=== PATIENT | female | born 1955 | race Caucasian/White ===

== ENCOUNTER 2023-12-29 13:00 | Outpatient (RCR) | payer MEDICARE, SELFPAY | END 2024-01-26 15:42 | disposition home or self-care (01) | PROVIDERS: PCP Family Medicine; Visit Provider Family Medicine | DX: M17.11 Unilateral primary osteoarthritis, right knee (principal); M79.651 Pain in right thigh; Z51.89 Encounter for other specified aftercare | CPT/HCPCS: 97110; 97140; 97161 ==

== ENCOUNTER 2024-04-25 14:25 | Outpatient (CLI) | payer MEDICARE, SELFPAY | END 2024-04-25 14:26 | disposition home or self-care (01) | LOC: INJ CL 14:25 | PROVIDERS: PCP Family Medicine; Visit Provider Family Medicine | DX: M17.11 Unilateral primary osteoarthritis, right knee (principal); M25.561 Pain in right knee | CPT/HCPCS: 64454 ==

== ENCOUNTER 2024-09-13 14:00 | Outpatient (RCR) | payer MEDICARE, SELFPAY | END 2024-10-24 12:41 | disposition home or self-care (01) | PROVIDERS: PCP Family Medicine; Visit Provider Family Medicine | DX: M17.11 Unilateral primary osteoarthritis, right knee (principal); M21.161 Varus deformity, not elsewhere classified, right knee; M79.651 Pain in right thigh; Z51.89 Encounter for other specified aftercare | CPT/HCPCS: 97110; 97140; 97161 ==

== ENCOUNTER 2025-03-07 17:40 | Emergency (ER) | payer MEDICARE, SELFPAY ==
[2025-03-07] VITALS (11 sets, daily range): BP systolic 80–129; BP diastolic 46–78; PULSE 82–88; RESP 18; TEMP 36.6; O2SAT 80–97
--- OUTSIDE RECORDS SUMMARY | 2025-03-07 17:44 | XMS_ITS | Clinical Summary ---
Author Organization [employer] [facility] Address [address] [place] [address] Care Team Providers Care Agricultural Researcher Name Role Phone Trinity Belcher MD Primary Care Prov ider Snow Garcia Unavailable [phone] Formerly [facility] Unavailable [phone] Unavailable [phone] Allergies Active Allergy Reactions Criticality Noted Date Comments Amoxicillin Hives High 09/29/2018 Other reaction(s): Rash Cefazolin Angioedema 10/03/2012 Codeine GI Upset,Vomiting 02/04/2007 Medications polyethylene glycoL (MIRALAX) 17 gram/dose powderIndications: Abdominal pain, unspecified site Take 17 g by mouth once daily if needed for Constipation. 3 jar 4 04/10/20 14 Active sennosides (SENNA) 8.6 mg tablet Take 8.6 mg by mouth once daily if needed. Active cycloSPORINE (RESTASIS) 0.05 % ophthalmic emulsion Place 1 Drop into both eyes 2 times daily. Active aspirin (ECOTRIN) 81 mg enteric coated tabletIndications: Coronary artery disease involving manchester coronary artery without angina pectoris, unspecified whether manchester or transplanted heart Take 1 Tablet (81 mg) by mouth once daily with a meal. 02/11/20 24 Active continuous glucose monitor SENSOR KIT (FreeStyle [place] 14 Day Sensor)Indications :Controlled type 2 diabetes mellitus with retinopathy, with long-term current use of insulin, macular edema presence unspecified, unspecified laterality, unspecified retinopathy severity (HC) As directed. 6 Each 06/06/19 25 Active rosuvastatin (CRESTOR) 10 mg tabletIndications: Mixed hyperlipidemia Take 1 Tablet (10 mg) by mouth at bedtime. 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 300 Each 12/15/19 25 Active pantoprazole (PROTONIX) 20 mg tabletIndications: Gastroesophageal reflux disease without esophagitis Take 1 Tablet (20 mg) by mouth once daily. 90 Tablet 12/15/19 25 Active nitroglycerin 0.4 mg sublingual tabletIndications: NSTEMI (non-ST elevated myocardial infarction) (HC) Place 1 Tablet (0.4 mg) under the tongue every 5 minutes if needed for Chest Pain. Evaluation if need to take medication. 25 Tablet 12/15/19 25 Active metoclopramide (REGLAN) 5 mg tabletIndications: Gastroparesis,Abdo swapna pain, unspecified abdominal location Take 1 Tablet (5 mg) by mouth 4 times daily if needed for Nausea/Vomiting. 120 Tablet 12/15/19 25 Active Lantus Solostar U-100 Insulin 100 unit/mL (3 mL) penIndications:Con trolled type 2 diabetes mellitus with retinopathy, with long-term current use of insulin, macular edema presence unspecified, unspecified laterality, unspecified retinopathy severity (HC) Inject 16-18 units subcutaneous two times daily. Product desired: LANTUS SOLOSTAR 11 Each 12/15/19 25 Active insulin aspart (U-100) (NovoLOG Flexpen U-100 Insulin) 100 unit/mL (3 mL) penIndications:Con trolled type 2 diabetes mellitus with retinopathy, with long-term current use of insulin, macular edema presence unspecified, unspecified laterality, unspecified retinopathy severity (HC) Inject 6-8 units subcutaneous three times daily before meals. DO NOT TAKE UNTIL YOUR SUGARS ARE CONSISTENTLY HIGHER THAT 120 8 Each 12/15/19 25 Active clopidogreL (PLAVIX) 75 mg tabletIndications: Arteriosclerotic heart disease (ASHD) Take 1 Tablet (75 mg) by mouth once daily. Take for 1 year minimum 90 Tablet 3 12/15/19 25 Active furosemide (LASIX) 20 mg tabletIndications: Chronic HFrEF (heart failure with reduced ejection fraction) (HC) Take 1 Tablet (20 mg) by mouth once daily in the morning, as directed to by cardiology. 30 Tablet 12/16/19 25 Active empagliflozin (JARDIANCE) 10 mg tabletIndications: Controlled type 2 diabetes mellitus with stage 3 chronic kidney disease, with long-term current use of insulin (HC) Take 1 Tablet (10 mg) by mouth once daily. 90 Tablet 3 12/16/19 25 Active sacubitril-valsart an (ENTRESTO 24 MG-26 MG TABLET) 24-26 mg tabletIndications: Systolic congestive heart failure, unspecified HF chronicity (HC) Take 1 Tablet by mouth two times daily. 180 Tablet 3 12/16/19 25 Active metoprolol succinate (Toprol XL) 50 mg sustained-release tabletIndications: Coronary artery disease involving manchester coronary artery without angina pectoris, unspecified whether manchester or transplanted heart Take 0.5 Tablets (25 mg) by mouth once daily. 45 Tablet 3 12/16/19 25 Active CPAPIndications:Ob structive sleep apnea RESMED CPAP (E0601) machine for home use at pressure: 10 cmw, Choice of mask (A7030 or A7034) w/full face cushion (A7031) x1/mo, nasal cushion (A7032) x2/mo, or nasal pillows (A7033) x 2/mo; Length of Need: 99 months; Frequency of use: Daily 1 Each 12/19/19 25 Active ammonium lactate 12 % creamIndications:D ry skin APPLY TOPICALLY TO AFFECTED AREA(S) twice daily as needed FOR DRY SKIN HOLD until patient calls 385 g 12/19/19 25 Active Active Problems Problem Noted Date Diagnosed Date Stable proliferative diabeti c retinopathy of both eyes associated with type 2 diabetes mellitus 06/29/2024 Heart failure with reduced ejection fraction 02/2025 Exudative age-related macula r degeneration, right eye, with active choroidal neovascularization 06/06/2024 Systolic congestive heart fa ilure, unspecified HF chronicity 06/06/2024 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) 03/29/2024 Ischemic cardiomyopathy 03/29/2024 Controlled type 2 diabetes m bronwyn with retinopathy, with long-term current use of insulin 12/09/2023 Ascending aortic aneurysm 12/09/2023 Controlled type 2 diabetes m bronwyn with stage 4 chronic kidney disease, with long-term current use of insulin 12/09/2023 Partial nontraumatic amputation of left foot Obesity, morbid 07/22/2021 Proliferative diabetic retin opathy of both eyes associated with type 2 diabetes mellitus 06/11/2019 CKD (chronic kidney disease) stage 4, GFR 15-29 ml/min 12/07/2018 Anemia in stage 4 chronic kidney disease 019 H/O hand surgery 10/26/2018 Gout 10/13/2018 Cellulitis of left thumb 10/12/2018 Infection of thumb 09/20/2018 Screening for osteoporosis 02/16/2016 Overview (02/16/2016): 01/2016 normal repeat 5- 7 yrs Gastroparesis 09/05/2012 Abdominal pain 09/01/2012 CAD (coronary artery disease) 03/20/2012 Overview (03/20/2012): - 03/16/12 Cor CTA: occluded mid LAD, prominent plaque burden - med management of NSTEMI ACP (advance care planning) 03/16/2012 Overview (03/16/2012): Patient has identified Health Care Agent(s): No Add Health Care Agents: No Patient has Advance Care Plan Documents (Health Care Directive, POLST): No, referral made to Social Work Services. Patient has identified Specific Treatment Preferences: No Specific limits to treatment preferences NOT identified: ASSUME FULL TREATMENT. NSTEMI (non-ST elevated myocardial infarction) 1 Pupil asymmetry 02/16/2012 Overview (02/16/2012): Right 3 mm 1-2 on left Arthritis 04/21/2011 Overview (04/21/2011): Mainly involving her hands and shoulders Charcot ankle 03/26/2011 Anemia, unspecified 10/28/2010 BHUPINDER 07/25/2010 AHI- 36, positional 08/01/2010 T12-L1 Extruded Disk Herniation 07/10/2010 Degeneration of lumbar or lumbosacral interverte bral disc 07/10/2010 Abdominal pain, epigastric 07/07/2010 Overview (07/07/2010): EGD 06/2010 Reactive gastropathy Unspecified essential hypertension 02/04/2007 Rash and other nonspecific skin eruption 007 Mixed hyperlipidemia 02/04/2007 DIABETES 04/06/2002 Resolved Problems Problem Noted Date Diagnosed Date Resolved Date Osteomyelitis of finger 10/13/201803/18 Renal insufficiency 03/07/2012 12/08/19 19 Unspecified sleep apnea 10/10/2010 03/0 07/2020 Overview (10/10/2010): Using CPAP Contraceptive surveillance, unspecified 02/04/2007 03/07/2012 Encounters Date Type Department Care Team Description 03/07/2025 Travel 03/06/2025 Telephone [facility] [address] [facility] [address] [place] [phone] Patricia Michaels RN Device Check (Programming adjustment.) 03/05/2025 11:30 AM CDT Telemedicine [facility] [address] [place] [address] Snow Garcia PA Telehealth (No vitals taken); Weight (MWL follow up) 02/28/2025 Travel 02/27/2025 Travel 02/23/2025 Telephone [facility] [address] [facility] [address] [place] [phone] Teresa Bowman PA Surgery Scheduled (BOOK AND PAPERS ) 02/22/2025 2:10 PM CDT Ancillary Procedure [facility] [address] [facility] [address] [place] [phone] 02/22/2025 1:50 PM CDT Office Visit [facility] - [facility] [address] [place] [address] Teresa Bowman PA 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) 02/22/2025 Transcribe Orders [facility] [address] [place] [address] Nestor Cramer MD 02/22/2025 Patient Outreach [facility] [address] [place] [address] Anamaria Woodward, toe closing machine tender Nurse Navigator (Assessment/RAPT/1 on education) 02/22/2025 Travel 02/21/2025 Travel 02/14/2025 10:30 AM CDT Office Visit [facility] [address] [facility] [address] [place] [address] Kathia Freeman, DILCIA Follow Up (6 week follow up / labs prior PT states feeling not too bad, no cardiac symptoms today. She wants to talk about getting her knee replacement. ) 02/14/2025 Travel 02/09/2025 Travel 02/07/2025 9:30 AM CDT Orders Only [facility] [address] [place] [address] Lab, [place] Lab 02/07/2025 Travel 02/02/2025 Travel 01/25/2025 10:20 AM CDT Office Visit [facility] [address] [place] [address] Severiano Ivan MD Musculoskeletal Problem (Right knee) 01/25/2025 Travel 01/20/2025 Travel 12/29/2024 Telephone [facility] [address] [place] [address] [facility] General Medicine Referral 12/28/2024 Orders Only [facility] [address] [place] [address] Trinity Belcher MD <No scans attached> 12/25/2024 1:00 PM CDT Orders Only [facility] [address] [facility] [place] [address] Lab, [place] [facility] 12/25/2024 Travel 12/20/2024 Travel 12/18/2024 9:00 AM CDT Office Visit [facility] [address] [place] [address] Dustin Malagon MD Sleep Follow-up 12/18/2024 Telephone [facility] [address] [place] [address] Kathia Freeman, COAL BRIQUETTE MACHINE OPERATOR Follow Up 12/18/2024 Telephone [facility] [address] [place] [address] Trinity Belcher MD Medication Management 12/18/2024 Travel 12/16/2024 Travel 12/15/2024 2:30 PM CDT Office Visit [facility] [address] [place] [address] Kathia Freeman, COAL BRIQUETTE MACHINE OPERATOR Follow Up (3 month F/U, labs 12/13. Pt states feeling ok, she has noticed a lot of fluid retention and weight gain. Some swelling in fingers but not really her lower extremities. pacer implanted 11/29 and has felt fine. No recent or current cardiac symptoms ) 12/15/2024 Travel 12/14/2024 9:00 AM CDT Office Visit [facility] [address] [facility] [place] [address] Trinity Belcher MD Medicare ANNUAL (subsequent) Visit (69 yo female); Serious Illness Conversation 12/14/2024 Refill [facility] [address] [place] [address] Trinity Belcher MD Refill Request (AMMONIUM LAC CRE) 12/13/2024 10:15 AM CDT Orders Only [facility] [address] [place] [address] Lab, [place] Lab 12/13/2024 Orders Only [facility] Scanner 1 scan: (1-Ord) [facility], MULTIPLE LAB RESULTS, 12/13/2024 12/13/2024 Orders Only [facility] Scanner 1 scan: (1-Ord) [facility] , MULTIPLE LABS, 12/13/2024 12/13/2024 Orders Only [facility] Scanner 1 scan: (1-Ord) [facility], MULTIPLE LABS, 12/13/2024 12/13/2024 Travel 12/13/2024 Telephone [facility] [address] [facility] [address] Trinity Belcher MD Lab 12/11/2024 11:00 AM CDT Patient Outreach [address] [address] Telehealth (DM education- follow up) 12/10/2024 Travel 12/09/2024 Travel 12/08/2024 Telephone [facility] [address] [facility] [place] [address] Trinity Belcher MD DME Supply (Address patients diabetes and complications feet. ) 12/08/2024 Telephone [facility] [address] [facility] [address] [place] [address] Kathia Freeman, COAL BRIQUETTE MACHINE OPERATOR Lab (Pro-BNP add on to labs drawn 12/07) 12/07/2024 11:00 AM CDT Orders Only [facility] [address] [facility] [address] Lab[place] <No scans attached> 12/06/2024 9:30 AM CDT Office Visit [facility] Alex [facility] [place] [address] Trinity Belcher MD Hospital F/U 12/06/2024 Travel 12/05/2024 1:30 PM CDT Telemedicine [address] [phone] Snow Garica PA Telehealth (No vitals taken); Weight (MWL follow up) from Last 3 Months Immunizations Immunization Administration Dates Next Due AMB Influenza, IIV3 (Age >=3 years)(Flu Clinic Only) 03/06/2010,03/15/2008 AMB Influenza, IIV4 PF (=>6 mos Flulaval,Fluzone Fluarix)(Flu Clinic Only) 02/26/2014 COVID-19 vaccine (Moderna 100mcg/0.5mL) PF, MDV 09/11/2021,03/19/2021,09/12/2020,08/15 Hepatitis B (Adult) 04/10/2014,2013,2013 Influenza A (H1N1), Inactivated 06/03/2009 Influenza A (H1N1), Inactiva dalia (Age >=3 Years) 06/03/2009 Influenza, High-dose Inactivated 01/18/2025,01/16 Influenza, High-dose Quadriv alent Inactivated 02/02/2023,02/17/2022,01/31/2021 Influenza, IIV3 (Age 6-35 mos) 02/17/2011 Influenza, IIV3 (Age >=3 years) 02/21/20 13,02/16/2012,02/17/2011,03/06,01/28/2009,03/15/2008,03/08/2007 ,03/18/2006,03/11/2005,02/26/2004,02/15 Influenza, IIV4 01/25/2020, 8,02/17/2017,01/27,02/26/2014 Influenza, IIV4 (=>6mos) MDV 02/08/2019 Pneumococcal Poly,23-Valent (Pneumovax) 02/17/2022,12/12/1996 Pneumococcal conj 13-Valent (Prevnar 13) 01/31/2021 RSV, Recombinant ADJ Reconst ituted (Arexvy 120MCG/0.5mL) 02/02/2023 Td (Age >=7 Years) 02/10/2005 Td, Preservative Free (age >= 7 Years) 5 Tdap 04/27/2024,04/10/2014 Zoster (Shingrix-RZV, recombinant) 11/22/2018, Zoster (Zostavax-ZVL, live) 10/22/2016 Family History Medical History Relation Name Comments Diabetes Brother 4 Unknown Brother 5 Unknown Brother 6 Good Health Daughter 2 Heart Disease Father CHF?? Hypertension Father Arthritis Mother Diabetes Mother Other Sister 2 hypoglycemic Psychiatric illness Son 3 autism Psychiatric illness Son 4 ADHD Cancer-breast No Family History Relation Name Status Comments Brother 1 Alive Brother 2 Alive Brother 3 Alive Brother 4 Brother 5 Brother 6 Daughter 1 Other Daughter 2 Father Mother Sister 1 Alive Sister 2 Son 1 Alive Son 2 Alive Son 3 Son 4 Social History Tobacco Use Types Packs/Day Years Used Date Smoking Tobacco: Never Passive Smoke Exposure: Never Smokeless Tobacco: Never Tobacco Cessation:Counseling Given: Yes Alcohol Use Standard Drinks/Week Comments No 0 (1 standard drink = 0.6 oz pur e alcohol) PHQ-2 Answer Date Recorded PHQ-2 TOTAL SCORE 0 12/14/2024 Social Connections Answer Date Recorded Do you often feel lonely or isolated from those around you? 0 11/29/2024 Alcohol Use Answer Date Recorded How often do you have a drink containing alcohol ? 0 03/05/2025 How many drinks containing a lcohol do you have on a typical day when you are drinking? 0 03/05/2025 How often do you have five or more drinks on one occasion? 0 03/05/2025 Financial Resource Strain Answer Date R ecorded Difficulty of Paying Living Expenses 3 12/09/2023 Difficulty of Paying Living Expenses Not on file 12/09/2023 Food Insecurity Answer Date Recorded Do you worry your food will run out before you are able to buy more? 1 11/29/2024 Transportation Needs Answer Date Record ed Does lack of transportation keep you from medica l appointments? 1 11/29/2024 Does lack of transportation keep you from work, meetings or getting things that you need? 1 11/29/2024 Housing Stability Answer Date Recorded What is your housing situation today? 1 11/29/2024 Interpersonal Safety Answer Date Record ed Are you being hit, kicked, p ushed or yelled at (see row info)? No 11/29/2024 Interpersonal Safety Abuse 12 - 18 Not on file 11/29/2024 Interpersonal Safety Ambulatory Vulnerability No t on file 11/29/2024 Utilities Answer Date Recorded Do you have trouble paying f or utilities (for example, heat, electricity, water, phone)? 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 Not on file Not on file Not on file Obstetrics History Para Term AB IAB SAB Ectopic Multiple Livin g Live Births 7 3 3 4 4 1 3 Date Outcome GA Total Labor Labor/2nd/3rd Weight Sex Type Anes PTL Verna A1 A5 Name Clin Term Term Term SAB SAB SAB SAB Last Filed Vital Signs Vital Sign Reading Time Taken Comments Blood Pressure 105/62 02/14/2025 10:32 AM CDT Pulse 78 02/14/2025 10:32 AM CDT Temperature 36.7 C (98 F) 12/01/2024 8:30 AM CDT Respiratory Rate 16 12/01/2024 8:30 AM CDT Oxygen Saturation 100% 02/14/2025 10:32 AM CDT Inhaled Oxygen Concentration - - Weight 91.2 kg (201 lb) 03/05/2025 11:00 AM CDT Height 157.5 cm (5' 2.01) 03/05/2025 11:00 AM C DT Body Mass Index 36.75 03/05/2025 11:00 AM CDT Plan of Treatment Upcoming Encounters Date Type Department Care Team (Late st Contact Info) Description 03/08/2025 Cardiac Device Check [facility] [phone] 03/12/2025 11:00 AM CDT Patient Outreach [address] [address] Sofi Ho, RD [address] [place] [phone] 03/20/2025 2:00 PM ERGONOMIST Ancillary Procedure [facility] [address] [place] [address] 03/22/2025 10:30 AM ERGONOMIST Telemedicine [facility] [place] [facility] [place] [address] [place] [address] Greg Go, ARTURO [address] [facility] [address] [place] [address] 03/29/2025 2:20 PM ERGONOMIST Procedure Only [facility] - [facility] [place] [address] [facility] [address] [place] [address] Teresa Bowman PA [address] [facility] [address] [place] [address] 04/18/2025 9:30 AM ERGONOMIST Office Visit [facility] [address] [place] [address] Trinity Belcher MD [address] [place] [address] 04/24/2025 10:30 AM ERGONOMIST Cardiac Device Check [facility] [place] [facility] [address] [place] [address] 05/09/2025 10:10 AM ERGONOMIST Hospital Encounter [facility] [address] [place] [address] Nestor Cramer MD [address] [facility] [address] [place] [address] 05/09/2025 10:10 AM ERGONOMIST - 05/09/2025 12:15 PM ERGONOMIST Surgery [facility] [address] [facility] [place] [address] Nestor Cramer MD [address] [facility] [address] [place] [address] INPATIENT RIGHT JOINTVUE TOTAL KNEE ARTHROPLASTY 05/23/2025 1:20 PM ERGONOMIST Office Visit [facility] - Joint Replacement [facility] [address] [place] [phone] Gregg Mcgee PA [address] [place] [address] Scheduled Procedures Name Priority Associated Diagnoses Date/Ti me ARTHROPLASTY KNEE Tier 4: > 90 days Primary osteoarthritis of right knee 05/09/2025 10:10 AM ERGONOMIST Health Maintenance Due Date Last Done Comments COVID-19 vaccine series ( season) 2025 02/04/2024, 03/12/2023, 11/04/2022, Additional history exists Mammogram for age 45-75 03/07/2025 03/07/20, 03/12/2022, 02/21/2019, Additional history exists Depression screening for age 12+ 12/15/2025 12/15/2024, 12/14/2024, 04/18/2024, Additional history exists Medicare Wellness for age 65+ 12/15/2025, 12/09/2023, 10/14/2022, Additional history exists BMI (ht and wt on same day) for age 18+ 03/05/2026 03/05/2025, 02/22/2025, 02/14/2025, Additional history exists Colonoscopy through age 75 11/15/2028 11/15/2018 Lipids for age 45-75 12/07/2029 12/07/2024, 03/16/2024, 12/08/2023, Additional history exists Tetanus booster 04/27/2034 04/27/2024, 03/18, 02/10/2005, Additional history exists Hepatitis B series for 19+ Completed 04/10, 2013, 07/17/2013 Zoster (shingles) series for age 50+ Completed 11/22/2018, 07/16/2018, 10/22/2016 Hepatitis C screening for ag e 18-79 Completed 09/22/2021 Pneumococcal series for age 50+ Completed 02/17/2022, 01/31/2021, 12/12/1996 RSV vaccine for adults or Completed 02/02/2023 DEXA/DXA scan for age 65+ Completed 2023, 02/11/2016, 02/26/2011 Influenza Vaccine Completed 01/18/2025, , 01/25/2020, Additional history exists Goals Goal Patient Goal Type Associated Problems Recent Progress Patient-Stated? Author Autogenera dalia Goal Care Plan Autogenerated Problem No Cinthya Posada Procedures Procedure Name Priority Date/Time Associated Diagnosis Comments XR KNEE WB 2 VIEWS BILATERAL AND 1 VIEW RIGHT Routine 02/22/2025 2:17 PM CDT Right knee pain, unspecified chronicity CALCIUM IONIZED OUTPT DRAW ONLY Routine 02/07/2025 9:33 AM CDT Serum calcium elevated PRO-BNP Routine 02/07/2025 9:31 AM CDT Chronic HFrEF (heart failure with reduced ejection fraction) (HC) BASIC METABOLIC PANEL Routine 02/07/2025 9:31 AM CDT Chronic HFrEF (heart failure with reduced ejection fraction) (HC) PERIPHERAL BLD MORPHOLOGY Routine 12/25/2024 1:18 PM CDT Anemia of unknown etiology DIFFERENTIAL STAT 12/25/2024 1:18 PM CDT Anemia of unknown etiology RETICULOCYTES Routine 12/25/2024 1:18 PM CDT Anemia of unknown etiology CBC W PLT NO DIFF Routine 12/25/2024 1:1 8 PM CDT Anemia of unknown etiology IRON PLUS IRON BINDING CAP Routine 12/25/2024 1:00 PM CDT Anemia of unknown etiology FERRITIN Routine 12/25/2024 1:00 PM CDT Anemia of unknown etiology FOLIC ACID Routine 12/25/2024 1:00 PM CDT Anemia of unknown etiology VITAMIN B12 Routine 12/25/2024 1:00 PM CDT Anemia of unknown etiology TSH WITH REFLEX Routine 12/25/2024 1:00 PM CDT Anemia of unknown etiology COMP METABOLIC PANEL Routine 12/25/2024 1:00 PM CDT Anemia of unknown etiology CALCIUM IONIZED OUTPT DRAW ONLY Routine 12/13/2024 10:11 AM CDT Hypercalcemia VITAMIN D 25 (DEFICIENCY) Routine 12/13/2024 10:11 AM CDT Hypercalcemia PTH,INTACT Routine 12/13/2024 10:11 AM CDT Hypercalcemia CBC W PLT NO DIFF Routine 12/13/2024 10: 11 AM CDT Anemia of unknown etiology BASIC METABOLIC PANEL Routine 12/13/2024 10:11 AM CDT Chronic HFrEF (heart failure with reduced ejection fraction) (HC) PRO-BNP Routine 12/13/2024 10:11 AM CDT Chronic HFrEF (heart failure with reduced ejection fraction) (HC) SCAN-LABORATORY REPORT 12/13/2024 12:00 AM CDT SCAN-LABORATORY REPORT 12/13/2024 12:00 AM CDT SCAN-LABORATORY REPORT 12/13/2024 12:00 AM CDT PRO-BNP Routine 12/07/2024 11:11 AM CDT LIPID PANEL W REFLEX MEASURED LDL Routine 12/07/2024 11:11 AM CDT Mixed hyperlipidemia BASIC METABOLIC PANEL Routine 12/07/2024 11:11 AM CDT Renal insufficiency Hypertension, unspecified type HEMOGLOBIN A1C Routine 12/07/2024 11:11 AM CDT Type 2 diabetes mellitus with complication, with long-term current use of insulin (HC) CBC W PLT NO DIFF Routine 12/07/2024 11: 11 AM CDT Anemia in stage 4 chronic kidney disease (HC) URINE ALBUMIN TO CREATININE RATIO, RANDOM Routine 12/07/2024 11:10 AM CDT Type 2 diabetes mellitus with complication, with long-term current use of insulin (HC) Microalbuminuria PRO-BNP Add On 12/07/2024 12:00 AM CDT Chronic HFrEF (heart failure with reduced ejection fraction) (HC) XR MAMMO JUAN BILAT SCREEN Routine 03/07/2024 11:15 AM CDT Visit for screening mammogram XR DXA BONE DENSITY 2 SITES AXIAL AND 1 SITE PERIPHERAL Routine 03/07/2024 11:09 AM CDT Postmenopausal ANTI HCV Routine 09/22/2021 9:08 AM CDT Need for hepatitis C screening test SCAN-COLONOSCOPY 11/15/2018 10:0 0 AM CDT from Last 3 Months or Most Recently Relevant to Health Maintenance Results * XR KNEE WB 2 VIEWS BILATERAL AND 1 VIEW RIGHT (02/22/2025 2:17 PM CDT) Anatomical Region Laterality Modality KNEES, KNEE R Digital Radiogra phy Narrative 02/26/2025 9:39 PM CDT This Radiology Exam Was Performed at [facility] [place] and Interpreted by Teresa Solorio PA-C HISTORY A 69 y.o. female with right knee pain. TECHNICAL THREE views consisting of standing AP bilateral knees, lateral right knee, and bilateral sunrise FINDINGS/IMPRESSION Standing AP bilateral knees, lateral right knee, and bilateral sunrise x-rays demonstrate mild to moderate osteoarthritis of bilateral knees with chondrocalcinosis of the lateral and medial compartments of the right knee. All services were personally performed by Teresa Solorio PA-C. Documentation performed by Tita Higginbotham, MAT, LAT, ATC based on provider statements to me. Teresa Solorio PA-C 02/22/2025 us Teresa [facility] Fin al Result * CALCIUM IONIZED OUTPT DRAW ONLY (02/07/2025 9:33 AM CDT) Only the most recent of2 resultswithin the time period is included. CALCIUM, IONIZED 5.1 4.7 - 5.5 mg/dL 02/08/2025 7:42 AM CDT [facility] Blood BLOOD SPECIMEN / Unknown [facility] / Unknown 02/07/2025 9:33 AM CDT 02/07/2025 9:34 AM CDT Trinity Belcher MD CHEMISTRY Fi nal Result Performing Organization Address [facility]/ZIP Co de Phone Number Atzip [address] [address], * (ABNORMAL) PRO-BNP (02/07/2025 9:31 AM CDT) Only the most recent of4 resultswithin the time period is included. NT PROBNP 1493(H) <125 pg/mL 02/08/2025 1:17 PM CDT [facility] Blood BLOOD SPECIMEN / Unknown [facility] / Unknown 02/07/2025 9:31 AM CDT 02/07/2025 9:31 AM CDT us Kathia HA SEND OUTS Final Resu lt Performing Organization Address [facility]/ZIP Co de Phone Number [employer] [address] [address], [place] [phone] * (ABNORMAL) BASIC METABOLIC PANEL (02/07/2025 9:31 AM CDT) Only the most recent of3 resultswithin the time period is included. SODIUM 138 135 - 146 mmol/L 02/08/2025 4:10 AM CDT [facility] POTASSIUM 4.8 3.5 - 5.3 mmol/L 02/08/2025 4:10 AM CDT [facility] CARBON DIOXIDE 27 20 - 32 mmol/L 02/08/2025 4:10 AM CDT [facility] GLUCOSE 149(H) 65 - 99 mg/dL 02/08/2025 4:10 AM CDT [facility] Comment: Fasting reference interval For someone without known diabetes, a glucose value >125 mg/dL indicates that they may have diabetes and this should be confirmed with a follow-up test. CALCIUM 9.6 8.6 - 10.4 mg/dL 02/08/2025 4:10 AM CDT [facility] CREATININE 2.11(H) 0.50 - 1.05 mg/dL 02/08/2025 4:10 AM CDT [facility] BUN/CREATININE RATIO 24(H) 6 - 22 (calc) 02/08/2025 4:10 AM CDT [facility] EGFR 25(L) > OR = 60 mL/min/1. 73m2 02/08/2025 4:10 AM CDT [facility] UREA NITROGEN (BUN) 51(H) 7 - 25 mg/dL 02/08/2025 4:10 AM CDT [facility] ELECTROLYTE BALANCE 8 7 - 17 mmol/L (calc) 02/08/2025 4:10 AM CDT [facility] CHLORIDE 103 98 - 110 mmol/L 02/08/2025 4:10 AM CDT [facility] Blood BLOOD SPECIMEN / Unknown [facility] / Unknown 02/07/2025 9:31 AM CDT 02/07/2025 9:31 AM CDT us Kathia Freeman COAL BRIQUETTE MACHINE OPERATOR CHEMISTRY Final Resu lt [facility] [address] [place] [address], * PERIPHERAL BLD MORPHOLOGY (12/25/2024 1:18 PM CDT) Case Report Special Hematology Report Case: [id number] Authorizing Provider: Trinity Belcher Collected: 12/25/2024 1318 MD Meggan Ordering Location: [facility] Received: 12/25/2024 1259 Clinic Pathologist: Rafa Chin MD Specimen: Blood 12/27/2024 11:13 AM CDT [facility] Final Diagnosis PERIPHERAL BLOOD: 1. Normocytic anemia 2. Mild absolute eosinophilia 12/27/2024 11:13 AM CDT [facility] at 1113 CDT Comment The specific etiology of the anemia is not apparent from the blood smear findings. The red blood cells show increased target cells, which may be seen as an artifact of smear preparation, in association with liver disease, or as a non-specific finding in association with anemia, among other etiologies. Normocytic anemia may be associated with a variety of conditions, including anemia of chronic disease, hypothyroidism, active bleeding, early iron deficiency, or medication effect. The morphologic features are not suggestive of hemolysis. No definite myelodysplastic features are seen. Eosinophilia is typically reactive and commonly associated with allergic reactions (medications, rashes, allergies, asthma). It is less commonly associated with parasitic infections, pulmonary diseases, cyclical eosinophilia, skin diseases, eosinophilic gastrointestinal disorders, collagen vascular disorders and Balbir's disease. If the eosinophilia becomes persistent and/or increases in magnitude without identifiable clinical etiology, re-evaluation would be recommended at that time. 12/27/2024 11:13 AM CDT [facility] Clinical Information 69-year-old woman with CAD, ischemic cardiomyopathy, heart failure with reduced ejection fraction, with persistent anemia. 12/27/2024 11:13 AM CDT [facility] CBC and Differential HEMATOLOGY PARAMETERS [facility] RESULTS EXPECTED VALUES WBC: 6.4 4.5-59z7562/cumm RBC: 2.87 4.00-5.20 mil/cummDECREASED HGB: 8.7 12-16 gm/dl DECREASED HCT: 27.0 33-51% DECREASED MCV: 94.0 80-100 fl NORMOCYTIC MCH: 30.3 26-34 pg MCHC: 32.2 32-36 gm/dl NORMOCHROMIC RDW: 13.0 11.5-15.5% PLT: 247 140-205a1514/uL MPV: 10.6 6.5-11 fl Retic: 2.5 0.5-1.5% ELEVATED Differential Absolute (%) Expected (%) (x10*9/L) (x10*9/L) Neutrophils: 2.8 (43.8) 1.7-7.0 (42-72%) Lymphocytes: 2.2 (34.4) 0.9-2.9 (20-44%) Monocytes: 0.6 (9.4) <0.9 (0-11%) Eosinophils: 0.6 (9.4) <0.5 (0-2%) ELEVATED Basophils: 0.1 (1.6) <0.3 (<3.0%) 12/27/2024 11:13 AM CDT [facility] Microscopic Description The final diagnosis is based on microscopic examination of an appropriately stained blood smear. 12/27/2024 11:13 AM T [facility] Additional Information Interpreted at [facility] - [address] [place] [address] S. [facility] [address] [address] 12/27/2024 11:13 AM T [facility] Blood BLOOD SPECIMEN / Unknown 12/25/2024 1:18 PM CDT 12/25/2024 12:59 PM CDT Comment:CURRENT MEDICATIONSC urrent Outpatient Medications: ammonium lactate 12 % cream, APPLY TOPICALLY TO AFFECTEDAREA(S) EACH TIME IF NEEDEDFOR DRY SKIN HOLD until patient calls, Disp: 385 g, Rfl: 3 aspirin (ECOTRIN) 81 mg enteric coated tablet, Take 1 Tablet (81 mg) by mouth once daily with a meal., Disp: , Rfl: BD Insulin Pen Needle UF 31 gauge x 5/16 (disposable insulin pen needle), For administering insulin at home., Disp: 300 Each, Rfl: 3 clopidogreL (PLAVIX) 75 mg tablet, Take 1 Tablet (75 mg) by mouth once daily. Take for 1 year minimum, Disp: 90 Tablet, Rfl: 3 continuous glucose monitor SENSOR KIT (FreeStyle [place] 14 Day Sensor), As directed., Disp: 6 Each, Rfl: 3 cycloSPORINE (RESTASIS) 0.05 % ophthalmic emulsion, Place 1 Drop into both eyes 2 times daily., Disp: , Rfl: empagliflozin (JARDIANCE) 10 mg tablet, Take 0.5 Tablets (5 mg) by mouth once daily., Disp: , Rfl: insulin aspart (U-100) (NovoLOG Flexpen U-100 Insulin) 100 unit/mL (3 mL) pen, Inject 6-8 units subcutaneous three times daily before meals. DO NOT TAKE UNTIL YOUR SUGARS ARE CONSISTENTLY HIGHER THAT 120, Disp: 8 Each, Rfl: 3 Lantus Solostar U-100 Insulin 100 unit/mL (3 mL) pen, Inject 16-18 units subcutaneous two times daily. Product desired: LANTUS SOLOSTAR, Disp: 11 Each, Rfl: 3 metoclopramide (REGLAN) 5 mg tablet, Take 1 Tablet (5 mg) by mouth 4 times daily if needed for Nausea/Vomiting., Disp: 120 Tablet, Rfl: 4 metoprolol succinate (Toprol XL) 25 mg Sustained-Release tablet, Take 1 Tablet (25 mg) by mouth two times daily., Disp: 60 Tablet, Rfl: 0 nitroglycerin 0.4 mg sublingual tablet, Place 1 Tablet (0.4 mg) under the tongue every 5 minutes if needed for Chest Pain. Evaluation if need to take medication., Disp: 25 Tablet, Rfl: 11 pantoprazole (PROTONIX) 20 mg tablet, Take 1 Tablet (20 mg) by mouth once daily., Disp: 90 Tablet, Rfl: 3 polyethylene glycoL (MIRALAX) 17 gram/dose powder, Take 17 g by mouth once daily if needed for Constipation., Disp: 3 jar, Rfl: 4 rosuvastatin (CRESTOR) 10 mg tablet, Take 1 Tablet (10 mg) by mouth at bedtime., Disp: 90 Tablet, Rfl: 3 sacubitril-valsartan (ENTRESTO 24 MG-26 MG TABLET) 24-26 mg tablet, Take 1 Tablet by mouth two times daily., Disp: 60 Tablet, Rfl: 0 sennosides (SENNA) 8.6 mg tablet, Take 8.6 mg by mouth once daily if needed., Disp: , Rfl: Trinity Belcher MD HEMATOLOGY Fi nal Result [facility] [address] [place] [address], [place] * (ABNORMAL) CBC W PLT NO DIFF (12/25/2024 1:18 PM CDT) Only the most recent of3 resultswithin the time period is included. WHITE BLOOD COUNT 6.4 4.5 - 11.0 thou/cu mm 12/25/2024 11:20 PM CDT [facility] RED BLOOD COUNT 2.87(L) 4.00 - 5.20 mil/cu mm 12/25/2024 11:20 PM CDT [facility] HEMOGLOBIN 8.7(L) 12.0 - 16.0 g/dL 12/25/2024 11:20 PM CDT [facility] HEMATOCRIT 27.0(L) 33.0 - 51.0 % 12/25/2024 11:20 PM CDT [facility] MCV 94 80 - 100 fL 12/25/2024 11:20 PM CDT [facility] MCH 30.3 26.0 - 34.0 pg 12/25/2024 11:20 PM CDT [facility] MCHC 32.2 32.0 - 36.0 g/dL 12/25/2024 11:20 PM CDT [facility] RDW 13.0 11.5 - 15.5 % 12/25/2024 11:20 PM CDT [facility] PLATELET COUNT 247 140 - 440 thou/cu mm 12/25/2024 11:20 PM CDT [facility] MPV 10.6 6.5 - 11.0 fL 12/25/2024 11:20 PM CDT [facility] NRBC 0.0 % 12/25/2024 11:20 PM CDT [facility] ABS NRBC 0.0 thou /cu mm 12/25/2024 11:20 PM CDT [facility] Blood BLOOD SPECIMEN / Unknown [facility] / Unknown 12/25/2024 1:18 PM CDT 12/25/2024 1:18 PM CDT Trinity Belcher MD HEMATOLOGY Fi nal Result Performing Organization Address [facility] Co de Phone Number [facility] [address] [place] [address], * (ABNORMAL) RETICULOCYTES (12/25/2024 1:18 PM CDT) RETIC% 2.5(H) 0.5 - 1.5 % 12/25/2024 11:20 PM CDT [facility] RETIC (ABSOLUTE) 0.07 0.03 - 0.08 mil/cu mm 12/25/2024 11:20 PM CDT [facility] Blood BLOOD SPECIMEN / Unknown [facility] / Unknown 12/25/2024 1:18 PM CDT 12/25/2024 1:18 PM CDT Trinity Belcher MD HEMATOLOGY Fi nal Result Performing Organization Address [facility] Co de Phone Number [facility] [address] [place] [address], * (ABNORMAL) STAT Differential (12/25/2024 1:18 PM CDT) % NEUT 44.6 % 12/26/2024 10:53 AM CDT [facility] % LYMPH 35.0 % 12/26/2024 10:53 AM CDT [facility] % MONO 9.0 % 12/26/2024 10:53 AM CDT [facility] % EOS 9.9 % 12/26/2024 10:53 AM CDT [facility] % BASO 1.3 % 12/26/2024 10:53 AM CDT [facility] % IMMATURE GRAN (METAS,MYELOS,UT OS) 0.2 % 12/26/2024 10:53 AM CDT [facility] ABSOLUTE NEUTROPHILS 2.8 1.7 - 7.0 thou/cu mm 12/26/2024 10:53 AM CDT [facility] ABSOLUTE LYMPHOCYTES 2.2 0.9 - 2.9 thou/cu mm 12/26/2024 10:53 AM CDT [facility] ABSOLUTE MONOCYTES 0.6 <0.9 thou/cu mm 12/26/2024 10:53 AM CDT [facility] ABSOLUTE EOSINOPHILS 0.6(H) <0.5 thou/cu mm 12/26/2024 10:53 AM CDT [facility] ABSOLUTE BASOPHILS 0.1 <0.3 thou/cu mm 12/26/2024 10:53 AM CDT [facility] ABSOLUTE IMMATURE GRANULOCYTES(MET ,MYELOS,PROS) 0.0 <0.3 thou/cu mm 12/26/2024 10:53 AM CDT [facility] Blood BLOOD SPECIMEN / Unknown [facility] / Unknown 12/25/2024 1:18 PM CDT 12/25/2024 1:18 PM CDT Narrative [facility] - 12/26/2024 10:53 AM CDT If ordering Differential testing STAT, a STAT WBC test [[id number]] MUST also be ordered. us Trinity Belcher MD HEMATOLOGY Fi nal Result [facility] [address] [place] [address], * TSH WITH REFLEX (12/25/2024 1:00 PM CDT) TSH W/REFLEX TO FT4 1.61 0.40 - 4.50 mIU/L [facility] Blood BLOOD SPECIMEN / Unknown 12/25/2024 1:00 PM CDT 12/25/2024 1:00 PM CDT us Trinity Belcher MD CHEMISTRY Fi nal Result Performing Organization Address City/[facility]/ZIP Co de Phone Number Atzip [facility] [address] [place] [address], [place] [phone] [employer] [facility] [address] [place] [address] * IRON PLUS IRON BINDING CAP (12/25/2024 1:00 PM CDT) Pathologist [facility] IRON, TOTAL 51 45 - 160 mcg/dL [facility] IRON BINDING CAPACITY 268 250 - 450 mcg/dL (calc) [facility] % SATURATION 19 16 - 45 % (calc) [facility] Blood BLOOD SPECIMEN / Unknown 12/25/2024 1:00 PM CDT 12/25/2024 1:00 PM CDT Trinity Belcher MD CHEMISTRY Fi nal Result Performing Organization Address [facility] Co de Phone Number [employer] [facility] [address] [place] [address], [place] [phone] [facility] [address] [place] [address] * FOLIC ACID (12/25/2024 1:00 PM CDT) [facility] FOLATE, SERUM 21.7 ng/mL [facility] Comment: Reference Range Low: <3.4 Borderline: 3.4-5.4 Normal: >5.4 Blood BLOOD SPECIMEN / Unknown 12/25/2024 1:00 PM CDT 12/25/2024 1:00 PM CDT Trinity Belcher MD CHEMISTRY Fi nal Result Performing Organization Address City/[facility]/ZIP Co de Phone Number [employer] [facility] [address] [place] [address], [place] [phone] [facility] [address] [place] [address] * FERRITIN (12/25/2024 1:00 PM CDT) [facility] FERRITIN 93 16 - 288 ng/mL [facility] Blood BLOOD SPECIMEN / Unknown 12/25/2024 1:00 PM CDT 12/25/2024 1:00 PM CDT Trinity Belcher MD CHEMISTRY Fi nal Result [employer] [facility] [address] [place] [address], [place] [phone] [facility] [address] [place] [address] * VITAMIN B12 (12/25/2024 1:00 PM CDT) [facility] VITAMIN B12 504 200 - 1,100 pg/mL [facility] Blood BLOOD SPECIMEN / Unknown 12/25/2024 1:00 PM CDT 12/25/2024 1:00 PM CDT Trinity Belcher MD CHEMISTRY Fi nal Result [employer] [facility] [address] [place] [address], [place] [phone] [facility] [address] [place] [address] * (ABNORMAL) COMP METABOLIC PANEL (12/25/2024 1:00 PM CDT) [facility] GLUCOSE 139(H) 65 - 99 mg/dL [facility] Comment: Fasting reference interval For someone without known diabetes, a glucose value >125 mg/dL indicates that they may have diabetes and this should be confirmed with a follow-up test. UREA NITROGEN (BUN) 48(H) 7 - 25 mg/dL [facility] CREATININE 1.82(H) 0.50 - 1.05 mg/dL [facility] EGFR 30(L) > OR = 60 mL/min/1.7 3m2 [facility] BUN/CREATININE RATIO 26(H) 6 - 22 (calc) [facility] SODIUM 139 135 - 146 mmol/L [facility] POTASSIUM 5.0 3.5 - 5.3 mmol/L [facility] CHLORIDE 106 98 - 110 mmol/L [facility] CARBON DIOXIDE 23 20 - 32 mmol/L [facility] CALCIUM 9.4 8.6 - 10.4 mg/dL [facility] PROTEIN, TOTAL 6.7 6.1 - 8.1 g/dL [facility] ALBUMIN 3.6 3.6 - 5.1 g/dL [facility] GLOBULIN 3.1 1.9 - 3.7 g/dL (calc) [facility] ALBUMIN/GLOBULIN RATIO 1.2 1.0 - 2.5 (calc) [facility] BILIRUBIN, TOTAL 0.4 0.2 - 1.2 mg/dL [facility] ALKALINE PHOSPHATASE 53 37 - 153 U/L [facility] AST 25 10 - 35 U/L [facility] ALT 16 6 - 29 U/L [facility] Blood BLOOD SPECIMEN / Unknown 12/25/2024 1:00 PM CDT 12/25/2024 1:00 PM CDT us Trinity Belcher MD CHEMISTRY Fi nal Result [facility] [address] [place] [address], [facility] [address] [place] [address] * VITAMIN D 25 (DEFICIENCY) (12/13/2024 10:11 AM CDT) VITAMIN D,25-OH,TOTAL,IA 63 30 - 100 ng/mL [facility] Comment: Vitamin D Status 25-OH Vitamin D: Deficiency: <20 ng/mL Insufficiency: 20 - 29 ng/mL Optimal: > or = 30 ng/mL For 25-OH Vitamin D testing on patients on D2-supplementation and patients for whom quantitation of D2 and D3 fractions is required, the Quest[facility]ureD(TM) 25-OH VIT D, (D2,D3), LC/MS/MS is recommended: order code 01236 (patients >2yrs). See Note 1 Note 1 For additional information, please refer to http://education.[employer]/faq/TXL835 (This link is being provided for informational/ educational purposes only.) Blood BLOOD SPECIMEN / Unknown 12/13/2024 10:11 AM CDT 12/13/2024 10:11 AM CDT Trinity Belcher MD SEND OUTS Fi nal Result [facility] [place] [address] [place] [address], [facility] [address] [place] [address] * (ABNORMAL) PTH,INTACT (12/13/2024 10:11 AM CDT) PARATHYROID HORMONE, INTACT 7(L) 16 - 77 pg/mL [facility] Comment: Interpretive Guide Int[facility] PTH Calcium ------- Normal Parathyroid Normal Normal Hypoparathyroidism Low or Low Normal Low Hyperparathyroidism Primary Normal or High High Secondary High Normal or Low Tertiary High High Non-Parathyroid Hypercalcemia Low or Low Normal High CALCIUM 10.5(H) 8.6 - 10.4 mg/dL [facility] Blood BLOOD SPECIMEN / Unknown 12/13/2024 10:11 AM CDT 12/13/2024 10:11 AM CDT Trinity Belcher MD SEND OUTS Fi nal Result Performing Organization Address [facility]/ZIP Co de Phone Number [facility] [address] [place] [address], [facility] [address] [place] [address] * SCAN-LABORATORY REPORT (12/13/2024 12:00 AM CDT) Only the most recent of3 resultswithin the time period is included. us Scanner OTHER Final Result * (ABNORMAL) HEMOGLOBIN A1C (12/07/2024 11:11 AM CDT) HEMOGLOBIN A1C 6.4(H) <5.7 % [facility] Comment: For someone without known diabetes, a hemoglobin A1c value between 5.7% and 6.4% is consistent with prediabetes and should be confirmed with a follow-up test. For someone with known diabetes, a value <7% indicates that their diabetes is well controlled. A1c targets should be individualized based on duration of diabetes, age, comorbid conditions, and other considerations. This assay result is consistent with an increased risk of diabetes. Currently, no consensus exists regarding use of hemoglobin A1c for diagnosis of diabetes for children. Blood BLOOD SPECIMEN / Unknown 12/07/2024 11:11 AM CDT 12/07/2024 11:11 AM CDT us Trinity Belcher MD CHEMISTRY Fi nal Result [facility] [address] [place] [address], [facility] [address] [place] [address] * (ABNORMAL) LIPID PANEL W REFLEX MEASURED LDL (12/07/2024 11:11 AM CDT) [facility] CHOLESTEROL, TOTAL 129 <200 mg/dL [facility] HDL CHOLESTEROL 47(L) > OR = 50 mg/dL [facility] TRIGLYCERIDES 128 <150 mg/dL [facility] [employer]ne LDL-CHOLESTEROL 61 mg/dL (calc) [facility] [employer]ne Comment: Reference range: <100 Desirable range <100 mg/dL for primary prevention; <70 mg/dL for patients with CHD or diabetic patients with > or = 2 CHD risk factors. LDL-C is now calculated using the Kalie calculation, which is a validated novel method providing better accuracy than the Friedewald equation in the estimation of LDL-C. Jose SS et al. JASON. 2013;310(19): 4086-3860 (http://education.[employer]/faq/BZQ042) CHOL/HDLC RATIO 2.7 <5.0 (calc) [facility] NON HDL CHOLESTEROL 82 <130 mg/dL (calc) [facility] Comment: For patients with diabetes plus 1 major ASCVD risk factor, treating to a non-HDL-C goal of <100 mg/dL (LDL-C of <70 mg/dL) is considered a therapeutic option. Blood BLOOD SPECIMEN / Unknown 12/07/2024 11:11 AM CDT 12/07/2024 11:11 AM CDT Trinity Belcher MD CHEMISTRY Fi nal Result [facility] [address] [place] [address], [facility] [address] [place] [address] * URINE ALBUMIN TO CREATININE RATIO, RANDOM (12/07/2024 11:10 AM CDT) Pathologist [facility] ALB RAND URINE <12.0 mg/L 12/07/2024 11:43 PM CDT [facility] CREATININE,URINE 0.46 g/L 12/08/19 11:43 PM CDT [facility] ALBUMIN TO CREATININE RATIO,RAND UR 12/07/2024 11:43 PM CDT [facility] Comment:Urine Albumin below measurement range, unable to calculate. Urine URINE SPECIMEN / Unknown Non-Blood / Unknown 12/07/2024 11:10 AM CDT 12/07/2024 11:10 AM CDT Narrative [facility] - 12/07/2024 11:43 PM CDT If Albumin to Creatinine Ratio is elevated, consider the following: Elevations seen with incipient nephropathy associated with diabetes mellitus or hypertension. Stress, exercise,hematuria, and urinary tract infection may also produce elevated results. If clinically indicated, confirm with 24 Hour Albumin to Creatinine Ratio. Trinity Belcher MD URINE Fi nal Result [facility] [address] [place] [address], [place] * XR MAMMO JUAN BILAT SCREEN (03/07/2024 11:15 AM CDT) Anatomical Region Laterality Modality BREASTS, Breast Left, Breast Right Bilateral Mammography Impressions 03/07/2024 3:18 PM CDT There is no radiographic evidence for malignancy. Recommend annual mammograms. MAMMOGRAM ASSESSMENT: ACR 1 Negative PATIENTS: You will also receive a letter with your examination results in an easy to read format. If you have questions about your results, please contact your referring provider. Narrative 03/07/2024 3:18 PM CDT For Patients: As a result of the 21st Century Cures Act, medical imaging exams and procedure reports are released immediately into your electronic medical record. You may view this report before your referring provider. If you have questions, please contact your health care provider. XR MAMMO JUAN BILAT SCREEN [[id number]] CLINICAL HISTORY: This is an asymptomatic 68 y.o. patient. INDICATION FOR EXAM: Mammogram Screening. TECHNIQUE: CC & MLO views were obtained. This study was evaluated with the assistance of Computer-Aided Detection. Breast Tomosynthesis was used in interpretation. COMPARISON FILM: Yes 03/12/22 [facility] 02/21/19 [facility] FINDINGS: There are scattered areas of fibroglandular density. There are no dominant masses, suspicious micro calcifications or areas of architectural distortion. Trinity Belcher MD MAMMO Fi nal Result * XR DXA BONE DENSITY 2 SITES AXIAL AND 1 SITE PERIPHERAL (03/07/2024 11:09 AM CDT) Anatomical Region Laterality Modality LUMBAR SPINE Other Impressions 03/08/2024 4:27 PM CDT Normal bone density. RECOMMENDATIONS: The National Osteoporosis Foundation recommends pharmacologic treatment for patients with T-scores of -2.5 or less, patients with prior history of fragility fractures, or patients with 10-year probability of greater than 3% at hips or greater than 20% of suffering major osteoporotic fractures. Recommend continued optimization of calcium and vitamin D intake through dietary means and/or supplementation and regular exercise. Repeat scan recommended in 3-5 years. Uzma Solares PA-C [facility] 03/08/2024 Narrative 03/08/2024 4:27 PM CDT For Patients: Results are automatically released to [facility] account once available, in compliance with federal regulations. This means that you may see your results before your provider has had a chance to review them. Please allow 2-3 business days for your provider to comment on the results. XR DXA Bone Mineral Density (BMD) EXAM LOCATION: [address] [address] PATIENT NAME: Tamiko Kelly DATE OF : 1955 EXAM DATE: 03/07/2024 REQUESTING PROVIDER: Trinity Belcher MD GENDER AT : female HEIGHT: 5' 5 (12/14/2018) WEIGHT: 251 lb 8 oz (11/22/2018) MENOPAUSAL STATUS: Postmenopausal RACE/ETHNICITY: White RISK FACTORS: Renal Failure and White Race CURRENT MEDICATION FOR BONE LOSS: NONE INDICATION: Post-Menopause COMPARISON DATE(S): 2015 DXA scans are compared to prior studies for a patient only when the two (or more) studies were performed on the same scanner. It is not possible to compare data generated on one scanner to data from another because there are not standards in DXA equipment. This applies even if the two scanners are made by the same senior network security architect. PROCEDURE: Dual-energy x-ray absorptiometry performed with routine technique. Reporting is completed in the form of a T-score. The T-score represents the standard deviation from peak bone mass based on young healthy adult. A Z-score is used for diagnosis in premenopausal women, and for men under the age of 50. FINDINGS: RESULT LUMBAR SPINE L2 - L4 BMD: 2.407 g/cm2 T-Score: + 9.6 Z-Score: + 10 Change from prior in 2016: Increase 32.7%. RESULTS FEMUR Left femoral neck BMD: 1.246 g/cm2 T-Score: + 0.5 Z-Score: + 2.4 Change from prior in 2016: Decrease 0.4%. Right femoral neck BMD: 1.425 g/cm2 T-Score: + 2.8 Z-Score: + 3.6 Change from prior in 2016: Increase 6.3%. Left hip BMD: 1.341 g/cm2 T-Score: + 2.6 Z-Score: + 3.2 Change from prior in 2016: Increase 5.7%. Right hip BMD: 1.320 g/cm2 T-Score: + 2.5 Z-Score: + 3.0 Change from prior in 2016: Increase 0.4%. RESULT FOREARM Left Forearm distal radius BMD: 0.757 g/cm2 T-Score: + 1.4 Z-Score: + 3.0 Change from prior: None WHO criteria: Normal: T-score at or above -1 SD Osteopenia: T-score between -1.1 and -2.4 SD Osteoporosis: T-score at or below -2.5 SD us Trinity Belcher MD DEXA Fi nal Result * ANTI HCV (09/22/2021 9:08 AM CDT) [facility] HEPATITIS C ANTIBODY Non-React leonarda Non-React leonarda 09/22/2021 5:49 PM CDT [facility] Comment:Antibodies to HCV no t detected; does not exclude the possibility of exposure to HCV. Blood BLOOD SPECIMEN / Unknown Venipuncture / Unknown 09/22/2021 9:08 AM CDT 09/22/2021 9:09 AM CDT us Trinity Belcher MD SEND OUTS Fi nal Result [facility] [address] [place] [address], [place] * SCAN-COLONOSCOPY (11/15/2018 10:00 AM CDT) Narrative Procedure Note Magen Kelly MD - 11/15/2018 8:49 AM CDT [facility] [address], [address], [place] [address] Patient Name: Tamiko Kelly Gender: Female Exam Date: 11/15/2018 Visit Number: [id number] Age: 63 Years 1 Month Date of : 1955 Attending MD: Magen Kelly MD Medical Record#: [id number] ----- Procedure: Colonoscopy Indications: Occult blood in stool Referring MD: Elodia Belcher MD Primary MD: Elodia Belcher MD Medications: Admitting Medications: 0.9% Normal Saline at TKO Intra Procedure Medications: Patient received monitored anesthesia care. Complications: No immediate complications Procedure: An examination of the heart and lungs was performed and found to be withinacceptable limits. The patient was therefore deemed a reasonablecandidate for endoscopy and monitored anesthesia care. The risks and benefits of the procedure were explained to the patient.After obtaining informed consent, the patient received monitoredanesthesia care and I passed the scope without difficulty via the rectum to the cecum. The appendiceal orificeand ic valve were identified. The scope was retroflexed during theexamination The quality of the prep was fair (Miralax/Gatorade DoublePrep). This was a complete examination throughout the entire colon. Findings: Normal finding. Location - cecum - ileocecal valve - ascending colon -hepatic flexure - transverse colon - splenic flexure - descending colon -sigmoid - rectum. Impression: Occult blood in stools Plan Repeat colonoscopy in 10 years. If you have signs or symptoms of lower GI illness or a new diagnosis ofcolon cancer in an immediate family member, you should contact your GIprovider or your primary provider to discuss whether your next examshould be repeated sooner. We will attempt to contact you at appropriate intervals via U.S. mail. Wemay not be able to find you or contact you at that time, therefore youshould know that the responsibility for following our recommendation restswith you. If you don't hear from us at the time your procedure is due,please contact our office to schedule an appointment. If your contactinformation should change, please contact our office so that we can updateyour records. Return to your primary care provider in Elodia Belcher MD. asneeded. Please follow up in the office with your Gastroenterology provider. Electronically signed by: Magen Kelly MD 11/15/2018 Medications: Medication Dose Sig Description PRN Status PRN Reason Comments aspirin 81 mg tablet,delayed release 81 mg take 1 tablet by oral routeevery day N taking as directed Randyaglaaron Brown U-100 Insulin 100 unit/mL (3 mL) subcutaneous 100 unit/mL(3 mL) inject by subcutaneous route as per insulin protocol N taking asdirected celecoxib 200 mg capsule 200 mg take 1 capsule by ORAL route 2 times everyday as needed N taking as directed clindamycin HCl 300 mg capsule 300 mg take 1 capsule by oral route 3 timesevery day N taking as directed hydrochlorothiazide 25 mg tablet 25 mg take 1 tablet by oral route everyday N taking as directed Lantus Solostar U-100 Insulin 100 unit/mL (3 mL) subcutaneous pen 100unit/mL (3 mL) inject by subcutaneous route as per insulin protocol Ntaking as directed metoclopramide 5 mg tablet 5 mg take 1 tablet by ORAL route 4 times everyday as directed N taking as directed metoprolol tartrate 50 mg tablet 50 mg take 1 Tablet by oral route 2 timesevery day with meals N taking as directed Miralax 17 gram oral powder packet 17 gram take 1 Pack by Oral routeevery day N taking as directed nitroglycerin 0.4 mg sublingual tablet 0.[address] 1 tablet by sublingualroute at the 1st sign of attack; may repeat every 5 min until relief; ifpain persists after 3 tablets in 15 min, prompt medical attention isrecommended N taking as directed Novolog Flexpen U-100 Insulin aspart 100 unit/mL (3 mL) subcutaneous 100unit/mL (3 mL) inject 10 Unit by subcutaneous route every day as perinsulin sliding scale protocol N taking as directed pantoprazole 40 mg tablet,delayed release 40 mg take 1 tablet by oralroute 2 times every day N taking as directed pravastatin 20 mg tablet 20 mg take 1 tablet by ORAL route every day Ntaking as directed Restasis 0.05 % eye drops in a dropperette 0.05 % instill 1 drop byophthalmic route 2 times every day into affected eye(s) N taking asdirected senna 8.6 mg tablet 8.6 mg take 1 tablet by oral route every day asneeded for constipation N taking as directed Allergies: Medication Name Ingredient Reaction Comment CEFAZOLIN Angioedema CODEINE Vomiting AMOXICILLIN Rash Vital Signs: Date Time Systolic Diastolic Height Weight BMI 11/15/2018 925 AM 138 78 65 in 248.59 41.40 Smoking Status: Use Status Type Smoking Status Usage Per Day Years Used Total Pack Years no/never Never smoker Race: White Ethnicity: Patient Wishes Not To Disclose Preferred Language: Chilean cc: Elodia Belcher MD cc: Elodia Belcher MD [facility] [phone] Magen Kelly MD OTHER Final Result from Last 3 Months or Most Recently Relevant to Health Maintenance Additional Health Concerns Active Problems Noted Date Diagnosed Date Autogenerated Problem 02/23/2025 Insurance [id number] [place] [id number] [employer] [place] MEDICARE PART A HB ONLY [id number] [place] [id number] Advance Directives * Full Code (Latest Code Status on File) Date Activated Date Inactivated Comments 11/29/2024 1:22 PM 12/01/2024 8:41 PM Question Answer Comments Code Status Discussion: Reviewed Preferences * Full Code Date Activated Date Inactivated Comments 03/29/2024 8:39 AM 04/05/2024 4:46 PM Question Answer Comments Code Status Discussion: Reviewed Preferences * Full Code Date Activated Date Inactivated Comments 10/12/2018 9:58 PM 10/19/2018 2:16 PM Question Answer Comments Code Status Discussion: Not Discussed * Full Code Date Activated Date Inactivated Comments 09/01/2012 4:48 PM 09/06/2012 4:01 PM * Full Code Date Activated Date Inactivated Comments 03/16/2012 2:50 PM 03/22/2012 2:17 PM Care Teams Agricultural Researcher Relationship Specialty Start Date End Date Trinity Belcher MD [address] [place] [address] PCP - General 08/26/05 Snow Garcia PA [address] [place] [address] Physician Business Operations Consultant 05/15/24 [facility] [address] [address] Cardiology - CHF 06/27/[address] [place] [address] Manufacturing Test Technician 10/27/24
--- OUTSIDE RECORDS SUMMARY | 2025-03-07 17:44 | XMS_ITS | Clinical Summary ---
Author Organization [employer] Address [address] [place] [address] Care Team Providers Care Director Immunology Name Role Phone Unavailable Primary Care Provider Unavailabl e Source Comments You are receiving this document as you are listed as the primary care provider,follow-up provider, or the patient has been referred to you for consultation.This is in compliance with the Medicare and[facility] Cent[facility] EHR Incentive Program,which states Providers who transition their patient to another setting of careor provider of care or refers their patient to another provider of care shouldprovide summary care record for each transition of care or referral. [employer] Allergies Active Allergy Reactions Criticality Noted Date Comments Amoxicillin Hives High 09/29/2018 Other reaction(s): Rash Cefazolin Angioedema High 10/03/2012 Codeine Gastrointestinal 02/04/2007 Other reaction(s): Vomiting Medications Blood Glucose Monitoring Suppl (ACURA BLOOD GLUCOSE METER) w/Device KIT Dispense meter, test strips, lancets covered by pt ins. 250.00 NIDDM type II - Test 4 times/day. Reason: High A1C 01/31/2015 Active ammonium lactate (AMLACTIN) 12 % cream Apply topically. 03/27/2019 Active aspirin, enteric-coated 81 MG enteric coated tablet Take 81 mg by mouth. 04/01/2011 Active Continuous Blood Gluc Yard Demurrage Clerk (FREESTYLE ARIES 14 DAY READER) ARVIN As directed. 12/14/2018 Act leonarda Continuous Blood Gluc Sensor (FREESTYLE ARIES 14 DAY SENSOR) MISC As directed. 12/14/2018 Act leonarda cycloSPORINE (RESTASIS) 0.05 % eye drop emulsion Place 1 Drop into eye(s). Active blood glucose ([employer] TEST STRIPS) test strip Test 2 times per day. 06/06/2018 Active insulin aspart (NOVOLOG FLEXPEN) 100 UNIT/ML pen injection Inject 35 Units subcutaneousl y. 03/27/2019 Active insulin glargine (LANTUS) 100 UNIT/ML pen Inject 86 Units subcutaneousl y. 06/06/2018 Active insulin pen needle 29G X 12 MM (EXEL COMFORT POINT PEN NEEDLE) HOLD until patient calls 03/27/2019 Active lancets (ACCU-CHEK SOFTCLIX) Test 4-6 times per day. HOLD until patient calls 01/31/2015 Active metoclopramide (REGLAN) 5 MG tablet Take 5 mg by mouth. 03/27/2019 Active metoprolol tartrate (LOPRESSOR) 50 MG tablet Take 50 mg by mouth. 03/27/2019 Active nitroglycerin (NITROSTAT) 0.[address] 0.4 mg under tongue. 03/27/2019 Active pantoprazole (PROTONIX) 40 MG tablet Take 40 mg by mouth. 03/27/2019 Active polyethylene glycol 3350 (GLYCOLAX) powder Take 17 g by mouth. 04/10/2014 Active pravastatin (PRAVACHOL) 20 MG tablet Take 20 mg by mouth. 03/27/2019 Active senna (SENNA-TIME) 8.6 MG tablet Daily as needed Active Sharps Container (YLPREA-C-MUVFZ LOCKING BRACKET) MISC 1 unit. CPAP, heated humidifier, mask, headgear, filters and tubing. 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 Gender Identity Not on file Sexual Orientation Not on file Last Filed Vital Signs Vital Sign Reading Time Taken Comments Blood Pressure - - Pulse - - Temperature - - Respiratory Rate - - Oxygen Saturation - - Inhaled Oxygen Concentration - - Weight 115.7 kg (255 lb) 03/27/2019 1:43 PM MILK ROUTE DELIVERER Height 165.1 cm (5' 5) 03/27/2019 1:43 PM MILK ROUTE DELIVERER Body Mass Index 42.43 03/27/2019 1:43 PM MILK ROUTE DELIVERER Plan of Treatment Health Maintenance Due Date Last Done Comments Colon Cancer Screening Plan Due 1955 Hep C Screening (Preventive Services) 1955 Adult Preventive Visit 10/16/1973 Cholesterol 10/16/2000 Pneumococcal Vaccine 50+ Yrs (2 of 2 - PCV) 10/16/2005 12/12/1996 Mammogram 02/22/2020 02/21/2019 DTaP/Tdap/Td Vaccine (2 - Tdap) 04/10/2024 04/10/2014, 02/10/2005, 02/10/2005 COVID-19 Vaccine (3 - 2024- season) 2025 09/12/2020, 08/15/2020 Influenza Vaccine (#1) 2025 , 02/08/2019, 02/08/2018, Additional history exists RSV Vaccine (1 - 1-dose 75+ series) 10/16/2030 Zoster/Shingles Vaccine Completed 11/23/19 19, 07/16/2018, 10/22/2016 HepA Vaccine Aged Out No longer eligi ble based on patient's age to complete this topic HepB Vaccine Aged Out No longer eligi ble based on patient's age to complete this topic Hib Vaccine Aged Out No longer eligi ble based on patient's age to complete this topic IPV (Polio) Vaccine Aged Out No longe r eligible based on patient's age to complete this topic MCV4 Vaccine Aged Out No longer eligi ble based on patient's age to complete this topic Meningococcal B Vaccine Aged Out No l onger eligible based on patient's age to complete this topic Insurance #[id number] [place] [id number] [place] [id number] [employer]
--- NOTE | 2025-03-07 19:00 | ED.GENADULT ---
HPI - General Adult General Date Seen: 03/07/25 Chief complaint: Extremity Pain/Injury, Upper Stated complaint: Left pointer finger infection Time Seen by Provider: 03/07/25 18:56 History of Present Illness HPI narrative: 69-year-old female with a past medical history notable for coronary artery disease, ascending aortic aneurysm, previous NSTEMI diabetes, hypertension, hyperlipidemia, elevated BMI, CHF with reduced ejection fraction, chronic anemia, sleep apnea, chronic kidney disease, gastroparesis, Per her [facility] medical record she is currently on Aspirin 81 mg daily Plavix 75 mg daily Jardiance Furosemide 20 mg daily Metoprolol XL 50 mg daily Entresto Rosuvastatin NovoLog FlexPen Lanjerricaus Guerline Cardenas Had an echocardiogram 11/29/2024 that showed normal LV size. EF 38%. Lateral wall hypokinesis, no aortic stenosis. Mild aortic regurg. Trace mitral regurg. Per discharge summary after placement of ICD in November of 2024... 69 y.o. female with a history of coronary artery disease (s/p PCI 04/04/2024), DM Type 2 (on insulin), HTN, dyslipidemia, CKD-3, BHUPINDER (on CPAP), and obesity. Coronary angiogram on 03/29/2024 with severe 3 vessel disease but surgical risk too high so underwent high risk PCI. EF was 22% on cardiac MRI on 04/03/2024. Had PCI to LM and LAD on 04/04/2024. Echocardiograms on 06/21/2024 and 09/26/2024 both showed an LVEF of 30-35% despite excellent GDMT. EKG shows a prolonged QRS of 156 ms due to RBBB/LAHB. Patient was referred to EP for consideration of a BiV ICD (SLASHER RUNNER-D). ? Tamiko Kelly underwent implant of a BiV ICD (SLASHER RUNNER-D) on 11/29/2024. She has been working hard to lose weight for the past few months and has lost about 50 lb. She was cutting vegetables about 2 or 3 weeks ago in her kitchen when she accidentally cut the dorsum of the PIP joint on her left hand. She had a wound there on her finger that was present for a couple of weeks but was not really getting better. Last Jethro she went to the urgent care because she thought it was developing redness and puffiness. She was started on trimethoprim/sulfamethoxazole for antibiotics for cellulitis. She has been taking them as prescribed but really has not noticed any improvement in her finger. This afternoon it abruptly changed. It developed purple duskiness and bruising at the finger tip as well as whiteness throughout the entire 5th proximal finger as well as whiteness on the palm of her hand with bruising on the palm. It is hurting more. He feels little bit numb in the finger tip. Nothing else is hurting. No other infections. She does not have a fever. No nausea vomiting. No body aches. She is not having any weakness. Related Data Home Medications ?Medication ?Instructions ?Recorded ?Confirmed aspirin 81 mg tablet 81 mg PO QDAY 03/02/25 03/02/25 clopidogrel 75 mg tablet 75 mg PO DAILY 03/02/25 03/02/25 cyclosporine 0.05 % eye drops in a 1 drp ophthalmic (eye) Q12H 03/02/25 03/02/25 dropperette (Restasis) empagliflozin 10 mg tablet 10 mg PO DAILY 03/02/25 03/02/25 (Jardiance) furosemide 20 mg tablet 20 mg PO QAM 03/02/25 03/02/25 insulin aspart U-100 100 unit/mL 6 - 8 unit subcut 3XD 03/02/25 03/02/25 (3 mL) subcutaneous pen (Novolog FlexPen U-100 Insulin aspart) insulin glargine 100 unit/mL (3 16 - 18 unit subcut BID 03/02/25 03/02/25 mL) subcutaneous pen (Lantus Solostar U-100 Insulin) metoclopramide HCl 5 mg tablet 5 mg PO QID PRN nausea/vomiting 03/02/25 03/02/25 metoprolol succinate 50 mg 50 mg PO BID 03/02/25 03/02/25 tablet,extended release 24 hr nitroglycerin 0.4 mg sublingual mg sublingual 03/02/25 03/02/25 tablet pantoprazole 20 mg tablet,delayed 20 mg PO DAILY 03/02/25 03/02/25 release polyethylene glycol 3350 17 4 g PO ONCE 03/02/25 03/02/25 gram/dose oral powder (Miralax) rosuvastatin 10 mg tablet 10 mg PO QPM 03/02/25 03/02/25 sacubitril 24 mg-valsartan 26 mg 1 tab PO BID 03/02/25 03/02/25 tablet (Entresto) sennosides 8.6 mg tablet 8.6 mg PO QDAY 03/02/25 03/02/25 Previous Rx's ?Medication ?Instructions ?Recorded sulfamethoxazole 800 1 tab PO BID #20 tabs 03/02/25 mg-trimethoprim 160 mg tablet Allergies Allergy/AdvReac Type Severity Reaction Status Date / Time cefazolin Allergy Verified 03/07/25 18:40 morphine Allergy Verified 03/07/25 18:40 Penicillins Allergy Verified 03/07/25 18:40 Exam Narrative: Exam Narrative: Constitutional: Appears well-developed and well-nourished. Alert. Conversant. Non toxic. Very polite. HENT: Head: Atraumatic. Nose: Nose normal. Mouth/Throat: Oral mucosa is clear and moist. no trismus. Pharynx normal.. Eyes: Conjunctivae normal. EOM normal. Pupils equal, round, and reactive to light. No scleral icterus. Neck: Normal range of motion. Neck supple. No tracheal deviation present. Cardiovascular: Normal rate, regular rhythm. No gallop. No friction rub. No murmur heard. Symmetric radial artery pulses . Well she has normal cap refill in her trauma, 3rd 4th and 5th fingers of her left hand. The 2nd finger in his whitish and purple. No cap refill there. Otherwise skin is pink, warm, well perfused. No cyanosis, mottling, the diaphoresis., Pulmonary/Chest: Effort normal. No stridor. No respiratory distress. No wheezes. No rales. No rhonchi . No tenderness. Abdominal: Soft.No distension. No mass. No tenderness. No rebound. No guarding. Musculoskeletal: RUE: Normal range of motion. No tenderness. No deformity LUE: She has marked soft tissue swelling of the index finger on her left hand. That the entire finger is whitish or purplish. There is a roughly 1-2 cm open lesion on the dorsum of the PIP joint that is draining some yellowish fluid but not opaque, more clear. The distal 2/3 of the finger are purple. Fingernail bed is purple. She has whiteness to coloration of the skin of the palmar hand with purple bruising ecchymotic discolorations there as well. No definite palpable gas in the soft tissue of the presentation is very concerning for worsening infection and necrotizing infection in that finger. Range of motion in the left index finger is limited by swelling. In otherwise, Normal range of motion. No other tenderness. RLE: Normal range of motion. No edema. No tenderness. No deformity LLE: Normal range of motion. No edema. No tenderness. No deformity Lymph: She does have a streak of his and lymphangitis extending from the palmar hand up the volar radial forearm all the way to her elbow. Neurological: Alert and oriented to person, place, and time. Normal strength. CN II-VII intact. No sensory deficit. GCS eye subscore is 4. GCS verbal subscore is 5. GCS motor subscore is 6. Normal coordination Skin: Other than her left hand and finger- Skin is warm and dry. No rash noted. No pallor. Normal capillary refill. Psychiatric: Normal mood. Normal affect. Const: Vital Signs, click to edit/add: Vital Signs - 24 hr 03/07/25 18:40 03/07/25 18:52 03/07/25 18:55 Temperature 97.9 F Pulse Rate 84 Pulse Rate [Pulse Oximeter] 82 Respiratory Rate 18 Blood Pressure 93/54 L Blood Pressure [Ri ght Upper Arm] 80/46 L Pulse Oximetry 97 97 Oxygen Delivery Me thod Room Air 03/07/25 19:08 03/07/25 19:10 03/07/25 19:16 Temperature Pulse Rate 87 88 Pulse Rate [Pulse Oximeter] Respiratory Rate Blood Pressure 88/56 L 100/60 Blood Pressure [Ri ght Upper Arm] Pulse Oximetry 97 96 Oxygen Delivery Me thod 03/07/25 19:56 03/07/25 19:57 03/07/25 20:01 Temperature Pulse Rate 88 Pulse Rate [Pulse Oximeter] Respiratory Rate Blood Pressure 110/62 129/78 Blood Pressure [Ri ght Upper Arm] Pulse Oximetry 97 Oxygen Delivery Me thod 03/07/25 20:11 03/07/25 20:17 Temperature Pulse Rate Pulse Rate [Pulse Oximeter] Respiratory Rate Blood Pressure 118/68 Blood Pressure [Ri ght Upper Arm] Pulse Oximetry 80 L Oxygen Delivery Me thod Course Course ED Course: Patient arrived in the ER and was roomed in ER room 7. I saw her upon rooming. Clinical exam was concerning for either acute ischemia with a superimposed infection of her left hand index finger or, worse yet, potentially necrotizing infection in that finger spreading up the palm of her hand with ascending lymphangitis all the way to her elbow. I ordered broad-spectrum antibiotics (Ordered meropenem, clindamycin, vancomycin) and lab workup as well as plain films to look for gas in the soft tissue. Patient's blood pressure is soft in the low normal range but her skin perfusion is normal other than her left index finger in mental status is normal. IV fluid bolus ordered. I also placed a phone call to her general surgeon, Dr. Roth. We reviewed the patient's presenting symptoms and she recommends transfer to the [facility] because she will probably need vascular surgery, ortho hand in potentially an amputation. Patient would not be a candidate for surgery here in [place] because of her medical complexity and we have an adequate specialty consultation services. On my review the patient's hand x-ray there is gas in the soft tissue Phone call placed contemporary nasally to [facility]. Discussed with the ER doctor, Dr. Domingo. He accepts the patient as an ER to ER transfer. Second ER IV ordered. I confirm without cooperage shop supervisor that all the necessary antibiotics are being brought to the bedside to be hung immediately. Labs [place] [address]. Hemoglobin is also low at 9. Venous blood gas shows a pH of 731 but normal pCO2. Venous lactic is 2.4. BMP, glucose, other chemistries are not back yet. Radiology over-read of the hand x-ray confirms gas in the soft tissue. Recheck-2nd IV established. % antibiotic hanging. Reviewed blood pressure is 110/62. Mental status still normal. Discussed transfer again with the patient. She is agreeable to go but wants to wait because left to go home to get parts for her CPAP. Encouraged her that she needs to go immediately if there is any chance of saving her finger. She understands. Update-BMP came back showing a dangerous hypoglycemia with a sugar of 47. Supplemented with oral orange juice. She continues to mentate normally and remains hemodynamically stable. Labs also show renal insufficiency with a BUN of 77 and a creatinine of 3.3. Sodium 132, potassium 5.6. No definite EKG changes. Renal function will need further evaluation when she arises the receiving center. At this point, expeditious/emergent transfer is indicated because of her severe infection in her finger and likely had to need surgical debridement and/or amputation to save the rest of her hand. And terminal proBNP was ordered inadvertently. It is elevated but she is not having any shortness of breath or hypoxia. I do not think it indicates presence of acute CHF. She is transferred emergently by ground EMS. Vital Signs Vital signs: Initial Vital Signs Temperature 97.9 F 03/07/25 18:40 Temperature Source Temporal Artery Scan 03/07/25 18:40 Pulse Rate 82 03/07/25 18:40 Respiratory Rate 18 03/07/25 18:40 Blood Pressure 80/46 L 03/07/25 18:40 Blood Pressure Mean 57 L 03/07/25 18:40 Blood Pressure Position Sitting 03/07/25 18:40 Pulse Oximetry 97 03/07/25 18:40 Oxygen Delivery Method Room Air 03/07/25 18:40 Vital Signs Temperature 97.9 F 03/07/25 18:40 Pulse Rate 82 03/07/25 18:40 Respiratory Rate 18 03/07/25 18:40 Blood Pressure 80/46 L 03/07/25 18:40 Pulse Oximetry 97 03/07/25 18:40 Oxygen Delivery Method Room Air 03/07/25 18:40 Temperature 97.9 F 03/07/25 18:40 Pulse Rate 88 03/07/25 19:56 Respiratory Rate 18 03/07/25 18:40 Blood Pressure 118/68 03/07/25 20:17 Pulse Oximetry 80 L 03/07/25 20:11 Oxygen Delivery Method Room Air 03/07/25 18:40 Medications Administered Medications: Discontinued Medications Generic Name Dose Route Start Last Admin Trade Name Freq PRN Reason Stop Dose Admin Meropenem 1 gm/ Sodium 100 mls @ 200 mls/hr 03/07/25 19:20 03/07/25 20:35 Chloride IVPB 03/07/25 19:21 Infused ONCE ONE Infusion Clindamycin Phosphate 900 mg in 50 mls @ 100 mls/hr 03/07/25 19:28 03/07/25 20:35 Clindamycin 900 Mg/50 Ml-D5w IVPB Infused Q8H MARSHA Infusion Vancomycin/PEG/NADA/Lysine/Water 2 gm in 400 mls @ 200 mls/hr 03/07/25 19:28 03/07/25 20:02 Vancomycin 2 Gm/400 Ml IVPB 03/07/25 21:27 200 mls/hr ONCE ONE Administration Protocol Medical Decision Making Lab Data Labs: Lab Results 03/07/25 03/07/25 03/07/25 Range/Units 19:10 19:10 19:20 WBC 20.20 H (4.50-11.00) K/uL RBC 3.36 L (4.00-5.20) m/uL Hgb 9.4 L (12.0-16.0) gm/dL Hct 29.2 L (33.0-51.0) % MCV 87 (80-100) fL MCH 28 (26-34) pg MCHC 32 (32-36) gm/dL RDW Coeff of Trice 14.0 (11.5-15.5) % Plt Count 335 (140-440) K/uL Neut % (Auto) 78.9 H (42.0-72.0) % Lymph % (Auto) 10.0 L (20-44) % [place] % (Auto) 6.0 (0.0-11.0) % Eos % (Auto) 0.9 (0.0-7.0) % Baso % (Auto) 0.1 (0.0-3.0) % Neut # (Auto) 15.90 H (1.7-7.0) K/uL Lymph # (Auto) 2.00 (0.90-2.90) K/uL [place] # (Auto) 1.20 H (0.00-0.90) K/UL Eos # (Auto) 0.20 (0.00-0.50) K/uL Baso # (Auto) 0.00 (0.00-0.30) K/uL Abs Immat Gran (auto) 0.80 H (0.00-0.30) K/uL Imm/Tot Granulo (auto) 4.1 % Diff Slide Review Acceptable Review Cancelled (Acceptable) INR 1.23 H (0.91-1.10) VBG pH 7.315 L (7.32-7.43) VBG pCO2 42 (40-50) mmHG VBG pO2 < 30.1 (25-47) mmHG VBG HCO3 22 (21-28) mmol/L Sodium 132 L (135-149) mmol/L Potassium 5.6 H (3.6-5.1) mmol/L Chloride 97 (96-114) mmol/L Carbon Dioxide 21 (20-32) mmol/L Anion Gap 14 (7-15) mEq/L BUN 77 H (7-30) mg/dL Creatinine 3.3 H (0.5-1.5) mg/dL Estimated GFR 15 ml/min Glucose 47 L* (60-115) mg/dL Lactate 2.4 H (0.5-1.9) mmol/L Calcium 9.8 (8.4-10.6) mg/dL C-Reactive Protein 34.4 H (0.5-1.0) mg/dL NT-Pro-B Natriuret Pep 6750 H (See Note) pg/mL Imaging Data XR L hand: Attestation: I have reviewed the pertinent imaging results. My impression: I reviewed the x-rays as they were done and I am concerned that they do show bubbles of gas in the soft tissue adjacent to the 2nd metacarpal. Radiologist's impression: Findings/Impression: Prominent soft tissue swelling of the hand, most pronounced radially and throughout the 2nd digit. Soft tissue gas is noted within the 2nd digit extending proximally to the level of the wrist, concerning for necrotizing soft tissue infection. ECG Data Attestation: I personally reviewed and interpreted this ECG as follows: Interpretation: Atrial sensed, ventricular paced rhythm with fusion complexes. Rate 87 VA [address] and T-waves consistent with ventricular QRS is. No definite ST segment elevation by Sgarbossa QT 422, QTC 507 Critical Care Time Critical Care Time Critical Care Time: Yes Attestation: The patient required my highest level preparedness to intervene emergently and I personally spent this critical care time directly and personally managing the patient. This critical care time included: Obtaining a history; Examining the patient; Pulse oximetry; Ordering and reviewing of studies; Arranging urgent treatment with development of a management plan; Evaluation of patients response to treatment; Frequent reassessment discussions with other providers. This critical care time was performed to assess and manage the high probability of imminent life-threatening deterioration that could result in multiorgan failure. It was exclusive of separate billable procedures and treating other patients and teaching time. Total Critical Care Time in Minutes: 45 Discharge Plan Discharge Clinical Impression: Necrotizing soft tissue infection, Ischemia of finger, Hypoglycemia, Acute kidney injury, Acute hyperkalemia Patient Disposition: Xfer Other Prescriptions: No Action sennosides 8.6 mg tablet 8.6 mg PO QDAY metoprolol succinate 50 mg tablet extended release 24 hr 50 mg PO BID clopidogrel 75 mg tablet 75 mg PO DAILY pantoprazole 20 mg tablet,delayed release (DR/EC) 20 mg PO DAILY metoclopramide HCl 5 mg tablet 5 mg PO QID PRN (Reason: nausea/vomiting) nitroglycerin 0.4 mg tablet, sublingual sublingual aspirin 81 mg tablet 81 mg PO QDAY furosemide 20 mg tablet 20 mg PO QAM polyethylene glycol 3350 [Miralax] 17 gram/dose powder 4 g PO ONCE insulin aspart U-100 [Novolog FlexPen U-100 Insulin] 100 unit/mL (3 mL) insulin pen 6 - 8 unit subcut 3XD cyclosporine [Restasis] 0.05 % dropperette 1 drp ophthalmic (eye) Q12H rosuvastatin 10 mg tablet 10 mg PO QPM insulin glargine [Lantus Solostar U-100 Insulin] 100 unit/mL (3 mL) insulin pen 16 - 18 unit subcut BID Jardiance 10 mg tablet 10 mg PO DAILY sacubitril-valsartan [Entresto] 24-26 mg tablet 1 tab PO BID sulfamethoxazole-trimethoprim 800-160 mg tablet 1 tab PO BID Qty: 20 0RF Stand Alone Forms: [facility] Instructions Procedures ABG Interpretation ABG Results: 03/07/25 19:10 VBG pH 7.315 L VBG pCO2 42 VBG pO2 < 30.1 VBG HCO3 22
--- NOTE | 2025-03-07 19:19 | CRLHL7_ITS ---
For Patients: As a result of the Cures Act, medical imaging exams and procedure reports are released immediately into your electronic medical record. You may view this report before your referring provider. If you have questions, please contact your health care provider. Indication: Infection of index finger with discoloration. Technique: Three views of the left hand. Comparison: None. Findings/Impression: Prominent soft tissue swelling of the hand, most pronounced radially and throughout the 2nd digit. Soft tissue gas is noted within the 2nd digit extending proximally to the level of the wrist, concerning for necrotizing soft tissue infection. No acute fracture, dislocation, or suspicious osseous lesion. No convincing radiographic evidence of underlying osteomyelitis. Visualized joint spaces are maintained. Dictated by Rafa Herbert MD @ 03/07/2025 7:42:20 PM (Electronically Signed)
[2025-03-07 19:31] LABS: HCO3 VBG 22 mmol/L (21-28); Hematocrit* 29.2 % (33.0-51.0); Hemoglobin* 9.4 gm/dL (12.0-16.0); Immature Granulocytes Pct Auto 4.1 %; Lactate* 2.4 mmol/L (0.5-1.9); Mean Corpuscular HGB Conc 32 gm/dL (32-36); Mean Corpuscular Hemoglobin 28 pg (26-34); Mean Corpuscular Volume 87 fL (80-100); PCO2 VBG 42 mmHG (40-50); PO2 VBG < 30.1 mmHG (25-47); RDW Coefficient of Variation % 14.0 % (11.5-15.5); Red Blood Count* 3.36 m/uL (4.00-5.20); White Blood Count* 20.20 K/uL (4.50-11.00); pH VBG 7.315 (7.32-7.43)
[2025-03-07 19:35] LABS: Immature Granulocytes Abs Auto 0.80 K/uL (0.00-0.30); Lymphocytes Absolute Auto 2.00 K/uL (0.90-2.90)
[2025-03-07 19:56] LABS: Chloride* 97 mmol/L (96-114); Potassium* 5.6 mmol/L (3.6-5.1); Sodium* 132 mmol/L (135-149)
[2025-03-07 19:59] LABS: Blood Urea Nitrogen* 77 mg/dL (7-30); Creatinine* 3.3 mg/dL (0.5-1.5); Estimated Glomerular Filt Rate 15 ml/min
[2025-03-07 20:00] LABS: Anion Gap 14 mEq/L (7-15); Calcium* 9.8 mg/dL (8.4-10.6); Carbon Dioxide* 21 mmol/L (20-32)
[2025-03-07] MEDS: MEROPENEM 1 GM in 0.9 % SODIUM CHLORIDE Mini-bag 100 ML IVPB (20:01)
[2025-03-07 20:02] LABS: INR 1.23 (0.91-1.10); Prothrombin Time 16.4 Seconds
[2025-03-07] MEDS: VANCOMYCIN 2 GM/400 ML 2 GM/400 ML PIGGYBACK IVPB (20:02)
[2025-03-07] MEDS: CLINDAMYCIN 900 MG/50 ML-D5W 900 MG/50 ML PIGGYBACK 100 MG IVPB (20:02)
[2025-03-07 20:23] LABS: NT Pro B Type NatriureticPept* 6750 pg/mL (See Note)
[2025-03-07 20:25] LABS: Glucose* 47 mg/dL (60-115)
[2025-03-07 20:58] LABS: Slide Review Acceptable Review (Acceptable); Slide Review Reflex Yes
== END 2025-03-07 20:43 | disposition other institution (70) ==
PROVIDERS: Emergency Provider Emergency Medicine; PCP Family Medicine
DX: L03.114 Cellulitis of left upper limb (principal); R73.9 Hyperglycemia, unspecified; E87.5 Hyperkalemia; N17.9 Acute kidney failure, unspecified; R06.83 Snoring
CPT/HCPCS: 36415; 73130; 80048; 82803; 83605; 83880; 85025; 85610; 86140; 87040; 93005; 96365; 96366; 99285; 99291; J0736; J2185; J3375

== ENCOUNTER 2025-03-07 20:28 | Outpatient (CLI) | payer MEDICARE, SELFPAY | END 2025-03-07 20:29 | disposition home or self-care (01) | LOC: AMB 03-09 02:09 | PROVIDERS: PCP Family Medicine; Visit Provider Emergency Medicine | DX: L03.114 Cellulitis of left upper limb (principal); M79.89 Other specified soft tissue disorders; I99.8 Other disorder of circulatory system; E87.5 Hyperkalemia; N17.9 Acute kidney failure, unspecified | CPT/HCPCS: A0425; A0434 ==